=== PATIENT | male | born 1950 | race Two or more races ===

== ENCOUNTER 2018-05-22 14:03 | Emergency (ER) | payer MEDICARE, OTHER ==
[~2018-05-22] VITALS: Ht 165.1 cm; Wt 66.2 kg
[2018-05-22 14:15] VITALS: BP 187/104
[2018-05-22] MEDS ORDERED: Sodium Chloride 500ML 500 ML IV ONE (14:53)
[2018-05-22] MEDS ORDERED: Morphine Sulfate 4mg/ml Inj (IV/IM USE ONLY) IVP ONE (15:00)
[2018-05-22] MEDS ORDERED: Isovue-300 100ml vial INJ PRN (15:00)
[2018-05-22 15:15] VITALS: BP_SYST 137; BP_SYST 138; BP_DIAS 84; BP_DIAS 91
[2018-05-22 15:45] LABS: HEMATOCRIT 40.7 % (42.0-52.0); HEMOGLOBIN 15.2 G/DL (14.2-18.0); MEAN CORPUSCULAR VOLUME 98 FL (80-99); PLATELET COUNT 156 K/UL (150-450); RED BLOOD COUNT 4.16 M/UL (4.70-6.10); RED CELL DISTRIBUTION WIDTH 12.1 % (11.6-14.8); WHITE BLOOD COUNT 5.6 K/UL (4.8-10.8)
[2018-05-22 15:46] LABS: APPEARANCE,URINE CLEAR; BILIRUBIN, URINE NEGATIVE (NEGATIVE); COLOR,URINE PALE YELLOW; GLUCOSE, URINE (UA) 1+ (NEGATIVE); KETONES,URINE NEGATIVE (NEGATIVE); LEUKOCYTE ESTERASE ,URINE NEGATIVE (NEGATIVE); NITRITE,URINE NEGATIVE (NEGATIVE); PH,URINE 8 (4.5-8.0); PROTEIN,URINE NEGATIVE (NEGATIVE); UROBILINOGEN,URINE 1 MG/DL (0.0-1.0)
[2018-05-22 16:13] LABS: ANION GAP 11 mmol/L (5-15); BLOOD UREA NITROGEN 11 mg/dL (7-18); CARBON DIOXIDE 27 MMOL/L (21-32); CHLORIDE 96 MMOL/L (98-107); CREATININE 0.7 MG/DL (0.55-1.30); POTASSIUM 4.2 MMOL/L (3.5-5.1); SODIUM 134 MMOL/L (136-145)
[2018-05-22 16:18] LABS: ALANINE AMINOTRANSFERASE 76 U/L (12-78); ALBUMIN 3.8 G/DL (3.4-5.0); ALBUMIN/GLOBULIN RATIO 0.8 (1.0-2.7); ALKALINE PHOSPHATASE 139 U/L (46-116); ASPARTATE AMINO TRANSFERASE 102 U/L (15-37); BILIRUBIN,TOTAL 0.8 MG/DL (0.2-1.0)
[2018-05-22] MEDS ORDERED: Omnipaque-300 100ml vial INJ ONE (16:30)
[2018-05-22] MEDS ORDERED: Fleet's Enema 133ml RECTAL ONE (17:45)
--- NOTE | 2018-05-22 18:12 | Emergency Room Report ---
History of Present Illness General Chief Complaint: Overdose Source: Patient Present Illness HPI 67-year-old male presents ED complaining of upper abdominal pain. Brought in by friend. Patient told friend that he took multiple pills of senna and Colace in order to have a bowel movement. The pills around midnight. Continues to have pain and no bowel movement. Sharp, 7 out of 10, nonradiating. Patient states he has colon cancer and currently being treated with radiation at [facility]. Has had previous surgery. Denies chest pain or shortness of breath. Denies fevers or chills. No other aggravating relieving factors. Denies any other associated symptoms Allergies: Coded Allergies: No Known Allergies (Unverified , 05/22/18) Patient History Past Medical History: other - colon cancer Past Surgical History: none Pertinent Family History: none Social History: Denies: smoking, alcohol use, drug use Immunizations: UTD Reviewed Nursing Documentation: PMH: Agreed; PSxH: Agreed Nursing Documentation-PMH Past Medical History: No History, Except For Hx Cancer: Yes Review of Systems All Other Systems: negative except mentioned in HPI Physical Exam Vital Signs Date Time Temp Pulse Resp B/P (MAP) Pulse Ox O2 Delivery O2 Flow Rate FiO2 05/22/18 14:11 98.4 62 20 192/87 97 Room Air Sp02 EP Interpretation: reviewed, normal General Appearance: no apparent distress, alert, GCS 15, non-toxic Head: normocephalic, atraumatic Eyes: bilateral eye normal inspection, bilateral eye PERRL ENT: hearing grossly normal, normal pharynx, no angioedema, normal voice Neck: full range of motion, supple/symm/no masses Respiratory: chest non-tender, lungs clear, normal breath sounds, speaking full sentences Cardiovascular #1: regular rate, rhythm, no edema Cardiovascular #2: 2+ carotid (R), 2+ carotid (L), 2+ radial (R), 2+ radial (L) , 2+ dorsalis pedis (R), 2+ dorsalis pedis (L) Gastrointestinal: normal bowel sounds, soft, non-distended, no guarding, no rebound, tenderness, other - healing surgical scar to abdomen Rectal: deferred Genitourinary: normal inspection, no CVA tenderness Musculoskeletal: back normal, gait/station normal, normal range of motion, non- tender Neurologic: alert, oriented x3, responsive, motor strength/tone normal, sensory intact, speech normal Psychiatric: judgement/insight normal, memory normal, mood/affect normal, no suicidal/homicidal ideation Reflexes: 3+ bicep (R), 3+ bicep (L), 3+ tricep (R), 3+ tricep (L), 3+ knee (R) , 3+ knee (L) Skin: normal color, no rash, warm/dry, well hydrated Lymphatic: no adenopathy Medical Decision Making Diagnostic Impression: Primary Impression: Constipation Qualified Codes: K59.00 - Constipation, unspecified Additional Impression: Multiple lung nodules on CT ER Course Hospital Course 67-year-old M presents to ED with abdominal pain. h/o colon cancer. no BM Differential diagnosis includes-appendicitis, cholecystitis, small bowel obstruction, gastritis, Clinical course Patient placed on stretcher. After initial history and physical I ordered labs , IV fluids, pain medications and CT scan Labs - no leukocytosis, electrolytes ok, LFTs normal, UA unremarkable CT scan shows mltiple nodules in lungs consistent with metastasis given patient' s history. no signs of bowel obstruction. no appendicitis. Discussed findings with patient. patient is made aware of potential metastatic findings. patient is currently undergoing radiation therapy for colon cancer Safe for discharge. We will provide enema for patient to take home. Patient will follow-up with his PMD given copy of CT report. I feel this is a highly complex case requiring extensive working including EKG/ Rhythm strip, Xray/CT/US, Blood/urine lab work, repeat exams while in ED, and administration of strong opiates/narcotics for pain control, admission to hospital or close patient follow up. Diagnosis - constipation Stable and discharged to home. Followup with PMD. Return to ED if symptoms recur or worsen Labs Test 05/22/18 15:27 White Blood Count 5.6 K/UL (4.8-10.8) Red Blood Count 4.16 M/UL (4.70-6.10) Hemoglobin 15.2 G/DL (14.2-18.0) Hematocrit 40.7 % (42.0-52.0) Mean Corpuscular Volume 98 FL (80-99) Mean Corpuscular Hemoglobin 36.4 PG (27.0-31.0) Mean Corpuscular Hemoglobin Concent 37.2 G/DL (32.0-36.0) Red Cell Distribution Width 12.1 % (11.6-14.8) Platelet Count 156 K/UL (150-450) Mean Platelet Volume 6.6 FL (6.5-10.1) Neutrophils (%) (Auto) % (45.0-75.0) Lymphocytes (%) (Auto) % (20.0-45.0) Monocytes (%) (Auto) % (1.0-10.0) Eosinophils (%) (Auto) % (0.0-3.0) Basophils (%) (Auto) % (0.0-2.0) Differential Total Cells Counted 100 Neutrophils % (Manual) 90 % (45-75) Lymphocytes % (Manual) 5 % (20-45) Monocytes % (Manual) 5 % (1-10) Eosinophils % (Manual) 0 % (0-3) Basophils % (Manual) 0 % (0-2) Band Neutrophils 0 % (0-8) Platelet Estimate Adequate Platelet Morphology Normal Red Blood Cell Morphology Normal Urine Color Pale yellow Urine Appearance Clear Urine pH 8 (4.5-8.0) Urine Specific [place] 1.010 (1.005-1.035) Urine Protein Negative (NEGATIVE) Urine Glucose (UA) 1+ (NEGATIVE) Urine Ketones Negative (NEGATIVE) Urine Blood Negative (NEGATIVE) Urine Nitrite Negative (NEGATIVE) Urine Bilirubin Negative (NEGATIVE) Urine Urobilinogen 1 MG/DL (0.0-1.0) Urine Leukocyte Esterase Negative (NEGATIVE) Sodium Level 134 MMOL/L (136-145) Potassium Level 4.2 MMOL/L (3.5-5.1) Chloride Level 96 MMOL/L (98-107) Carbon Dioxide Level 27 MMOL/L (21-32) Anion Gap 11 mmol/L (5-15) Blood Urea Nitrogen 11 mg/dL (7-18) Creatinine 0.7 MG/DL (0.55-1.30) Estimat Glomerular Filtration Rate > 60 mL/min (>60) Glucose Level 128 MG/DL (74-106) Calcium Level 10.0 MG/DL (8.5-10.1) Total Bilirubin 0.8 MG/DL (0.2-1.0) Aspartate Amino Transf (AST/SGOT) 102 U/L (15-37) Alanine Aminotransferase (ALT/SGPT) 76 U/L (12-78) Alkaline Phosphatase 139 U/L (46-116) Total Protein 8.8 G/DL (6.4-8.2) Albumin 3.8 G/DL (3.4-5.0) Globulin 5.0 g/dL Albumin/Globulin Ratio 0.8 (1.0-2.7) Lipase 109 U/L (73-393) CT/MRI/US Diagnostic Results CT/MRI/US Diagnostic Results : Imaging Test Ordered: CT A/P Impression Multiple nodules in the visualized lower lungs, measuring up to 7 mm. These nodules are nonspecific. Metastases are not excluded. Please correlate with prior exams and clinical history. Mild bibasilar atelectasis. Mild cardiomegaly. Tip of a central venous catheter seen at the junction of the SVC and right atrium. Partial right hepatectomy. Probable hepatic steatosis. Prior cholecystectomy. Probable postcholecystectomy ductal ectasia. Atrophy of the pancreas. No acute inflammation or mass. Bilateral renal cysts. Mild excreting contrast in the renal collecting systems. No hydronephrosis. Fat stranding and trace fluid in the presacral region. Question postsurgical or posttreatment changes. Anastomosis in the rectum. Anastomosis also noted in the right lower quadrant. Last Vital Signs Date Time Temp Pulse Resp B/P (MAP) Pulse Ox O2 Delivery O2 Flow Rate FiO2 05/22/18 16:03 98.4 05/22/18 15:15 69 16 138/84 100 Room Air Status: improved Disposition: HOME, SELF-CARE Condition: Stable Patient Instructions: Constipation, Adult, [id number]-rb-Decr Ranjith Fernandez MD May 22, 2018 18:12
[2018-05-22 18:17] VITALS: BP 149/78
--- NOTE | 2018-05-23 10:10 | Diagnostic Imaging Report ---
Clinical Indication: Upper abdominal pain, constipation, pain is sharp, 7 out of 10, nonradiating. History of colon cancer Technique: No oral contrast utilized, per emergency room physician request IV administration nonionic contrast. Venous phase spiral acquisition obtained through the abdomen and pelvis. Multiplanar reconstructions were generated. Total dose length product 531.27 mGycm. CTDIvol(s) 10.58 mGy. Dose reduction achieved using automated exposure control Comparison: none Findings: The appendix is normal. Surgical clips are seen surrounding the rectum. There are also some surgical fatou adjacent to the sigmoid. There is infiltration of the presacral fat, but no definite mass lesion. There is also an anastomotic staple line involving right lower quadrant small bowel loops. No evidence of diverticulosis or diverticulitis. No small bowel distention. Distal esophagus, stomach, duodenum are unremarkable. No free or loculated intraperitoneal gas or fluid is evident. There is evidence of prior right hepatic lobectomy and cholecystectomy. There is mild dilatation of the common bile duct and intrahepatic bile ducts, but no downstream obstructive lesion is demonstrated. Common bile duct measures up to 7 mm in diameter. There is a subcentimeter low-attenuation lesion at the tip of segment 2. No other focal hepatic abnormality demonstrated. The pancreas is somewhat atrophic. The splenic artery is heavily calcified, demonstrates low-attenuation contents distally, may be occluded. The spleen nonetheless appears normal and normally perfused. The adrenals are unremarkable. The kidneys demonstrate cysts bilaterally. No hydronephrosis. No renal or ureteral calculi. No hydroureter. Unremarkable bladder. No pelvic mass or adenopathy. Included lung bases demonstrate multiple round nodules measuring up to 6 mm in diameter. These are bilateral. The tip of a central venous catheter is seen deep in the right atrium. The heart is borderline enlarged. The bones are unremarkable. Impression: Multiple bilateral lung nodules, likely metastases given stated clinical history of colon carcinoma Evidence of prior distal colonic and small bowel surgery, as described Infiltration of the presacral fat, likely postsurgical change but acute edema not excludable. No definite evidence of tumor recurrence in this area Evidence of prior right lobe hepatectomy Mildly dilated bile ducts. Probably related to the above as no definite downstream obstructive lesion is demonstrated. Nonetheless, correlation with liver function tests is recommended Atrophic pancreas Possible splenic artery occlusion, but apparent normal splenic perfusion Borderline cardiomegaly Other findings as noted, including central venous catheter in the right atrium, bilateral renal cysts, small fat-containing umbilical hernia This agrees with the preliminary interpretation provided overnight by [facility] teleradiology service, with minor variation. The CT scanner at [facility] is accredited by the [employer] and the scans are performed using protocols designed to limit radiation exposure to as low as reasonably achievable to attain images of sufficient resolution adequate for diagnostic evaluation.
== END 2018-05-22 18:17 | disposition home or self-care (01) ==
LOC: EMR 14:53
DX: K59.00 Constipation, unspecified (principal); R91.8 Other nonspecific abnormal finding of lung field; R10.10 Upper abdominal pain, unspecified; C18.9 Malignant neoplasm of colon, unspecified
CPT/HCPCS: 36415; 74177; 80053; 81003; 83690; 85007; 85025; 96374; 99284; J2270; Q9966; Q9967